=== PATIENT | male | born 1985 | race Caucasian/White ===

== ENCOUNTER 2024-07-08 09:26 | Emergency (ER) | payer SELFPAY ==
[2024-07-08 09:30] VITALS: BP 145/100
--- NOTE | 2024-07-08 10:09 | ED.MUSCINJ ---
HPI-Injury
General
Chief Complaint: Musculo-Skeletal Complaint
Source: patient
Exam Limitations: none
Time Seen by Provider: 07/08/24 10:03
Nursing documentation reviewed up to this point in time: agreed with
History of Present Illness-Injury
Initial Injury comments:
39-year-old male states he was walking up his friend's steps yesterday, fell and impacted the left knee on the step. He states since then he has had pain at the point of impact and the knee feels unstable when he walks.
Past History
Past History
ED Past Medical History: None
ED Past Surgical History: None
Social History
Tobacco: Smoker
Alcohol: Occasional
Personal: Single
Living: with family
Employment: Employed
Review of Systems
Review of Systems
Allergies reviewed?: Yes
All Other Systems: ROS reviewed and negative except as documented in HPI and ROS
Musculoskeletal: Reports other (Pain anterior aspect of left knee.)
Skin: Reports other (Small bruise left knee)
Neurological: Denies weakness or numbness
Phy Exam
Physical Exam
Physical Exam:
PHYSICAL EXAMINATION:
General: no apparent distress, not acutely ill
Neuro: alert and oriented.
Psychiatric: well kept. interactive and cooperative
Musculoskeletal: Half dollar sized tender area of ecchymosis medial aspect left knee. Mildly limited range of motion. Patella nontender to palpation. Medial lateral collateral ligaments are nontender to palpation, tender to
palpate in the space between the patella and the medial collateral ligament. Distal neurovascular intact. Moves with ease
Skin: Warm, pink.
Injury Course
Orders/Labs/Results
Orders:
Orders
07/08/24 09:33
Knee, Left 4 or More Views [CR Knee - Left 4 Or More View*] Urgent
Comment:
Reason For Exam: left knee pain slipped going up the steps
07/08/24 10:10
Knee Immobilizer Left-Treatmen ONCE
Procedures
Splinting/Sling Placement
Left Knee:
Procedure completed by: RN
Pre-splint extermity exam: good alignment
Type of splint: knee immobilizer
Splint checked by provider?: Yes
MDM/Problems Addressed
MDM/Problems Addressed:
39-year-old male states he was walking up his friend's steps yesterday, fell and impacted the left knee on the step. He states since then he has had pain at the point of impact and the knee feels unstable when he walks.
X-ray left knee initially read by this examiner: Small suprapatellar effusion, no bony abnormality.
Knee immobilizer applied. Distal neurovascular intact.
Patient is able to ambulate comfortably with it on.
BP rechecked 129/75
*Critical Care Note
Total Time (30-74mins, 75-104mins- exclusive of procedures): Not Applicable
ED Attending Note
-
Portions of this chart may have been created with voice recognition software.� Occasional wrong word or��sound alike� substitutions may have occurred due to the inherent limitations of voice recognition software.
Discharge Plan
Departure
Patient Disposition: Home (Routine Discharge)
Date of Disposition: 07/08/24
Time of Disposition: 10:14
Patient with high blood pressure during this ER visit?: No
Condition: Good
Discharge Problem:
Contusion of left knee, Soft tissue injury of left knee
Instructions: Contusion (DC), Knee Pain (DC), Using Cold for Pain
Prescriptions:
No Action
hydrocodone-acetaminophen 5 MG/500 MG tablet
1 tab PO Q4HPRN PRN (Reason: Pain) Qty: 10 0RF
Referrals:
Kavon East MD [Active] - As needed
Activity Restrictions/Additional Instructions:
As we discussed, wear the knee immobilizer when up and around at all times until the knee feels stable without it.
See the orthopedic doctor in 1 to 2 weeks if your knee is not very much improved by then. Tylenol or ibuprofen as needed for pain.
Cold compress to the area 20 minutes off and on throughout the day today and tomorrow is much as you can.
Interventions
Interventions:
*Risk Screen - Suicide Last Done: 07/08/24 09:30
*Neglect/Abuse Screening Last Done: 07/08/24 09:30
*Nursing Disposition Last Done: 07/08/24 10:59
ED-Musculoskeletal Assessment Last Done: 07/08/24 10:58
Discharge Date and Time
Discharge Date/Time: 07/08/24 10:59
Print Language: IRAQI
== END 2024-07-08 10:59 | disposition home or self-care (01) ==
LOC: EMR 09:26
PROVIDERS: EMERGENCY PHYSICIAN Student in an Organized Health Care Education/Training Program; FAMILY PHYSICIAN Family Medicine
DX: S80.02XA Contusion of left knee, initial encounter (principal); S89.92XA Unspecified injury of left lower leg, initial encounter; W10.9XXA Fall (on) (from) unspecified stairs and steps, initial encounter; F17.200 Nicotine dependence, unspecified, uncomplicated
CPT/HCPCS: 99283; 29505; 73564